=== PATIENT | male | born 2000 | race African-American/Black ===

== ENCOUNTER 2020-04-07 15:08 | Emergency (ER) | payer MEDICAID ==
[~2020-04-07] VITALS: Ht 177.8 cm; Wt 69.4 kg
[2020-04-07 18:13] VITALS: BP 105/57
[2020-04-08 05:08] LABS: RAPID PLASMA REAGIN Non Reactive (Non Reactive)
== END 2020-04-07 18:13 | disposition home or self-care (01) ==
LOC: ED 15:08
PROVIDERS: Emergency Medicine
DX: A64 Unspecified sexually transmitted disease (principal); J34.89 Other specified disorders of nose and nasal sinuses
CPT/HCPCS: J0696